=== PATIENT | male | born 1950 | race Caucasian/White ===

== ENCOUNTER → 2021-04-11 00:05 | Outpatient (CLI) | payer MEDICARE, SELFPAY ==
[2021-04-11 18:03] LABS: SARS-CoV-2 RNA PCR Negative
== END ==
PROVIDERS: PCP Internal Medicine; Visit Provider Internal Medicine Gastroenterology
DX: Z01.812 Encounter for preprocedural laboratory examination (principal); Z20.822 Contact with and (suspected) exposure to COVID-19
CPT/HCPCS: C9803; U0003; U0005

== ENCOUNTER 2021-04-14 01:31 | Day surgery (SDC) | payer MEDICARE, SELFPAY ==
[2021-04-02 15:48] VITALS: BMI 30.8
[2021-04-14] MEDS: LACTATED RINGERS 1,000 ML 150 ML IV CONT (06:49)
[2021-04-14 06:51] LABS: Glucose Point of Care 136 mg/dl (65-105)
[2021-04-14 06:57] VITALS: BP 184/88; PULSE 114; RESP 20; TEMP 36.9; O2SAT 97
--- NOTE | 2021-04-14 07:39 | WPDANESEPPF ---
Anes - Initial Pre Proc Eval Procedure: Operation Date: 04/14/21 08:00 Proposed Procedures p Screening Colonoscopy - Rogelio Staples MD Date/Time: 04/14/21 07:39 Surgeon: Rogelio Staples MD Pre Op Diagnosis: neoplasm screening Patient Data Age: 70 Gender: M Height: 1.83 m Weight: 101 kg Last Vital Signs Temp 98.5 F 04/14/21 06:57 Pulse 114 H 04/14/21 06:57 Resp 20 04/14/21 06:57 BP 184/88 H 04/14/21 06:57 Pulse Ox 97 04/14/21 06:57 Allergies Allergy/AdvReac Type Severity Reaction Status Date / Time No Known Allergies Allergy Unknown Uncoded 04/14/21 06:44 Home Medications Medication Instructions Recorded Confirmed Type blood sugar diagnostic #100 each 07/30/19 04/14/21 Rx docosahexaenoic acid (dha)-epa 120 3 cap PO BID cap 07/30/19 04/14/21 History mg-180 mg capsule lancets #100 each 07/30/19 04/14/21 Rx metformin 500 mg tablet 500 mg PO DAILY #90 tablet 07/04/20 04/14/21 Rx metoprolol succinate 100 mg 100 mg PO DAILY #90 tablet 08/14/20 04/14/21 Rx tablet,extended release 24 hr amlodipine 5 mg PO DAILY 04/02/21 04/14/21 History losartan 100 mg PO DAILY 04/02/21 04/14/21 History pantoprazole 20 mg PO DAILY 04/02/21 04/14/21 History pravastatin 80 mg PO DAILY 04/02/21 04/14/21 History tamsulosin 0.4 mg PO DAILY 04/02/21 04/14/21 History Laboratory Tests 04/14/21 06:48 POC Capillary Glucose 136 mg/dl H mg/dl (65-105) Patient hx anesthesia problems: none Family hx anesthesia problems: none Results Review: All pre-operative results and documents have been reviewed as part of the pre-operative evaluation. [facility] Past Medical History Medical History (Updated 02/18/21 @ 10:31 by Jeannette Garcia, EXCAVATING MACHINE OPERATOR-C) BPH (benign prostatic hyperplasia) Erectile dysfunction Gout Hyperlipidemia Hypertension Inguinal hernia Prediabetes Umbilical hernia Social History Social History Smoking status: Never smoker Alcohol intake: current Drinks per week: 1 Alcohol use details: 1 or 2 drinks a month Substance use type: does not use Living arrangements: with family Spiritual care concerns: No Anes - Eval Final PreProcedure Day of Procedure 04/14/21 07:39 Patient weight: obese Heart: regular rate and rhythm Lungs: clear to auscultation Airway: Mallampati scale class II Neurological: alert and oriented Last oral intake: >/= 8 hours ASA classification: III Emergent: no Anesthetic plan: proceed Anesthesia type and monitoring: general GIVS and standard monitoring Results Review: All pre-operative results and documents have been reviewed as part of the pre-operative evaluation. Informed Consent: The patient's anesthetic plan and its attendant risks and benefits were discussed with the patient/family/POA. Questions were solicited and answers provided to the satisfaction of the patient/family/POA.
--- NOTE | 2021-04-14 08:01 | PM.HPGS ---
History of Present Illness History of Present Illness Consent: Risks, benefits, and alternatives have been discussed and questions answered. Patient agrees to proceed with procedure. Chief complaint: neoplasm screening Narrative: Gil Martinez is a 70 year old male with last colonoscopy 12 years ago. Review of Systems Constitutional: Constitutional: Denies headache(s) and Denies weakness Eyes: Eyes: Denies blurry vision ENT: Reports Normal hearing present, Denies headache(s) and Denies neck pain Cardiovascular: Cardiovascular: Denies chest pain and Denies dyspnea Respiratory: Respiratory: Denies dyspnea Gastrointestinal: Gastrointestinal: Reports no additional gastrointestinal complaints Genitourinary: Genitourinary: Denies dysuria Musculoskeletal: Musculoskeletal: Denies neck pain Integumentary/Breasts: Skin/Breast: Denies dry skin Neurologic: Reports Normal hearing present, Denies headache(s) and Denies weakness Psychiatric: Psychiatric: Denies anxiety Endocrine: Endocrine: Denies change in body appearance Hematologic/Lymphatic: Hematologic/Lymphatic: Denies easy bleeding Allergic/Immunologic: Allergic/Immunologic: Denies urticaria PMFSH Past Medical History Medical History (Updated 02/18/21 @ 10:31 by MAMTA Greene) BPH (benign prostatic hyperplasia) Erectile dysfunction Gout Hyperlipidemia Hypertension Inguinal hernia Prediabetes Umbilical hernia Social History Social History Smoking status: Never smoker Alcohol intake: current Drinks per week: 1 Alcohol use details: 1 or 2 drinks a month Substance use type: does not use Living arrangements: with family Spiritual care concerns: No Meds Home Medications and Allergies Home Medications Medication Instructions Recorded Confirmed Type blood sugar diagnostic #100 each 07/30/19 04/14/21 Rx docosahexaenoic acid (dha)-epa 120 3 cap PO BID cap 07/30/19 04/14/21 History mg-180 mg capsule lancets #100 each 07/30/19 04/14/21 Rx metformin 500 mg tablet 500 mg PO DAILY #90 tablet 07/04/20 04/14/21 Rx metoprolol succinate 100 mg 100 mg PO DAILY #90 tablet 08/14/20 04/14/21 Rx tablet,extended release 24 hr amlodipine 5 mg PO DAILY 04/02/21 04/14/21 History losartan 100 mg PO DAILY 04/02/21 04/14/21 History pantoprazole 20 mg PO DAILY 04/02/21 04/14/21 History pravastatin 80 mg PO DAILY 04/02/21 04/14/21 History tamsulosin 0.4 mg PO DAILY 04/02/21 04/14/21 History Allergies Allergy/AdvReac Type Severity Reaction Status Date / Time No Known Allergies Allergy Unknown Uncoded 04/14/21 06:44 Vital Signs Vital Signs - 24 hr 04/14/21 06:57 Temperature 98.5 F Pulse Rate 114 H Respiratory Rate 20 Blood Pressure 184/88 H Pulse Oximetry 97 Exam Const: General: comfortable and no acute distress HENMT: General nose exam: Normal nares present Eyes: General: appearance normal, both eyes and all related structures Neck: Neck: no JVD Resp: Auscultation: clear to auscultation bilaterally Cardio: Rate: regular rate Rhythm: regular rhythm GI: Inspection: non-distended GI Palp: Yes Soft to palpation Skin: General skin exam: normal color Neuro: General: gait normal Speech: normal speech Extrem: General: normal to inspection Psych: Mental Status: mental status grossly normal Assessment and Plan Assessment and plan (1) Screening for colon cancer: Code(s): Z12.11 - Encounter for screening for malignant neoplasm of colon Status: Acute Assessment and Plan: colonoscopy
[2021-04-14 08:29] VITALS: BP 104/69; PULSE 75; RESP 21; O2SAT 98
[2021-04-14 08:39] VITALS: BP 111/75; RESP 20; O2SAT 99
[2021-04-14 08:49] VITALS: BP 146/89; RESP 18; O2SAT 99
== END 2021-04-14 09:05 | disposition home or self-care (01) ==
PROVIDERS: PCP Internal Medicine; Visit Provider Internal Medicine Gastroenterology
PROC: 0DJD8ZZ Inspection of Lower Intestinal Tract, Via Natural or Artificial Opening Endoscopic (ICD-10-PCS; CPT 45378; principal; 2021-04-14 08:00)
DX: Z12.11 Encounter for screening for malignant neoplasm of colon (principal); D12.3 Benign neoplasm of transverse colon; D12.4 Benign neoplasm of descending colon; K63.5 Polyp of colon; K57.30 Diverticulosis of large intestine without perforation or abscess without bleeding; K64.8 Other hemorrhoids; I10 Essential (primary) hypertension; E78.5 Hyperlipidemia, unspecified; R73.03 Prediabetes; M10.9 Gout, unspecified; N40.0 Benign prostatic hyperplasia without lower urinary tract symptoms; Z79.84 Long term (current) use of oral hypoglycemic drugs; E66.9 Obesity, unspecified; Z68.30 Body mass index [BMI] 30.0-30.9, adult
CPT/HCPCS: 45385; 82948; 88305; J2704; J7120

== ENCOUNTER 2023-03-03 08:23 | Inpatient (IN) | payer MEDICARE, SELFPAY ==
[2023-03-03] VITALS (26 sets, daily range): BP systolic 135–187; BP diastolic 94–113; PULSE 74–164; RESP 17–22; TEMP 36–36.8; O2SAT 22–98
--- NOTE | 2023-03-03 | ECHO_ITS ---
Patient Info Name: Gil Martinez Age: 72 years : 1950 Gender: Male Ht: 74 in Wt: 230 lbs BSA: 2.35 m2 HR: 86 bpm Heart Rhythm: Atrial Fibrillation Technical Quality: Good Exam Date: 03/03/2023 3:54 PM Exam Location: [facility] Patient Status: Outpatient Admit Date: 03/03/2023 Staff Ordering Physician: Donna Brown Allopathic Doctor: Nain Perla RDCS Attending Provider: Shanon Hargrove MD Referring Physician: Stephanie MENDOZA; Exam Type: CA echo doppler color flow Study Info Indications - A-fib Complete two-dimensional, color flow and Doppler transthoracic echocardiogram is performed. Summary 1. Complete two-dimensional, color flow and Doppler transthoracic echocardiogram is performed. 2. Left ventricular hypertrophy with normal systolic function. 3. Dilated left atrium. 4. Trivial MR. 5. Atrial fibrillation. Left Ventricle Left ventricular chamber dimension is normal. Left ventricular systolic function is normal, estimated at 55-60%. There is mild concentric increased left ventricular wall thickness. The left ventricular diastolic function is indeterminate. Right Ventricle Right ventricular chamber dimension is normal. Left Atria Left atrial chamber dimension is moderately enlarged. Right Atria Right atrial chamber dimension is normal. Aortic Valve The aortic valve is normal. Pulmonic Valve The pulmonic valve is normal. Mitral Valve The mitral valve has normal leaflets. Tricuspid Valve The tricuspid valve leaflets are normal. Pericardium/Pleural The pericardium appears normal. Aorta The aortic root size at the sinus of Valsalva is normal. Left Ventricular Outflow Tract Name Value Normal LVOT 2D LVOT Diameter 2.1 cm LVOT Doppler LVOT Peak Gradient 3 mmHg LVOT Mean Gradient 2 mmHg LVOT VTI 16 cm LVOT VTI/AV VTI Ratio 1.2 LVOT Stroke Volume 57 ml LVOT CO 1.9 l/min LVOT CI 0.8 l/min/m2 Pulmonic Valve Name Value Normal RVOT Doppler RVOT Peak Gradient 1 mmHg PV Doppler PV Peak Gradient 2 mmHg Mitral Valve Name Value Normal MV Doppler MV Decel [place] 451 cm/s2 MV PHT 64 ms MV Area (PHT) 3.4 cm2 4.0-5.0 MV Diastolic Function MV E Peak Velocity 100 cm/s
--- NOTE | ~2023-03-03 | XR_ITS ---
EXAMINATION: XR chest 1V portable DATE: 03/03/2023 09:04 INDICATION: Heart palpitations. Atrial fibrillation. TECHNIQUE: frontal view of the chest was obtained. COMPARISON: None FINDINGS: Mild elevation of the left hemidiaphragm with triangular opacities at the left lung base most consist ent with discoid atelectasis. Additional streaky atelectasis at the right lung base. Small likely oskar cified nodule at the left costophrenic angle consistent with old granulomatous disease. There is a la rger 11 mm nodule projecting over the lateral right lower lung zone likely but not definitively calci fied. No pulmonary edema, pleural effusion or pneumothorax. The cardiomediastinal silhouette is withi n normal limits for AP technique. IMPRESSION: 1. Bibasilar opacities and favor atelectasis over pneumonia. 2. Nodular opacity lateral right lower lung zone, likely but not definitively calcified and would rec ommend low-dose noncontrast chest CT for further evaluation. Reviewed, dictated and finalized at location A. IMPRESSION: 1. Bibasilar opacities and favor atelectasis over pneumonia. 2. Nodular opacity lateral right lower lung zone, likely but not definitively c alcified and would recommend low-dose noncontrast chest CT for further evaluati on.
--- NOTE | ~2023-03-03 | CT_ITS ---
EXAMINATION:CT diagnostic chest wo con DATE: 03/03/2023 09:58 INDICATION: Abnormal chest radiograph. Dysphagia. Palpitations. TECHNIQUE: Computed tomography (CT) of the chest was performed without intravenous contrast. Automate d exposure control and iterative reconstruction technique were employed. The dose-length product (DLP ) was 377.66 mGy-cm. COMPARISON: Chest single view 03/03/2023 FINDINGS: There is mild elevation of left hemidiaphragm. There are mild lungs demonstrate mild atelec tasis. A calcified left lung nodule and calcified left hilar and mediastinal lymph nodes are consiste nt with old granulomatous disease. No pleural effusion. Cardiomegaly is noted. There are coronary art ulises calcifications. No pericardial effusion. Calcifications in the spleen are consistent with old gra nulomatous disease. There is a 7.6 cm mass in right hepatic lobe. There is mild cervical and thoracic spondylosis. IMPRESSION: 1. 7.6 cm liver mass, which may be benign or malignant. Abdomen MRI without and with contrast is sujit mmended. Reviewed, dictated and finalized at location A. IMPRESSION: 1. 7.6 cm liver mass, which may be benign or malignant. Abdomen MRI without and with contrast is recommended.
--- NOTE | ~2023-03-03 | MR_ITS ---
EXAMINATION: MR abdomen wo/w con DATE: 03/04/2023 13:22 INDICATION: Liver mass. TECHNIQUE: Magnetic resonance imaging (MRI) of the abdomen was performed without and with 20 mL Multi Kimberly intravenous contrast. COMPARISON: Chest CT 03/03/2023 FINDINGS: There is a small right pleural effusion. In the right hepatic lobe, there is an 8.2 x 5.8 cm mass wit h interrupted peripheral puddling of contrast, consistent with a hemangioma. In the left hepatic lobe , there is a 1.7 cm hyperenhancing mass without washout. There are cysts in the spleen measuring up t o 7 mm. The pancreas and adrenal glands are normal. There is cortical thinning of the kidneys. There are cysts and hemorrhagic cysts in the kidneys measuring up to 13 mm in the right. There are no dilat ed loops of bowel. There is no ascites. There are no pathologically enlarged lymph nodes. IMPRESSION: 1. 8.2 cm hemangioma in the liver. 2. 1.7 cm hyperenhancing liver mass. In the absence of known malignancy or chronic liver disease, thi s finding is likely a hemangioma or focal nodular hyperplasia. 3. Small right pleural effusion. Reviewed, dictated and finalized at location A. IMPRESSION: 1. 8.2 cm hemangioma in the liver. 2. 1.7 cm hyperenhancing liver mass. 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 3. Small right pleural effusion.
--- NOTE | 2023-03-03 08:29 | ECG_ITS ---
Measurements Intervals [place] Rate: 155 P: MI: 0 QRS: 25 QRSD: 110 T: -5 QT: 284 QTc: 457 Interpretive Statements ATRIAL FLUTTER WITH RAPID VENTRICULAR RESPONSE MODERATE ST DEPRESSION [0.05+ mV ST DEPRESSION] ABNORMAL ECG COMPARED TO ECG 05/08/2019 14:14:51 ATRIAL FLUTTER REPLACES SINUS RHYTHM Electronically Signed On 03-03-2023 13:18:14 CDT by Bradly Kee M.D.
[2023-03-03 08:57] LABS: Basophils Percent Auto 0.3 % (0.2-1.2); Eosinophils Absolute Auto 0.1 K/mm3 (0-0.3); Eosinophils Percent Auto 0.9 % (0-4.4); Hemoglobin 16.9 g/dL (14.0-18.0); Immature Granulocyte Absolute 0.02 K/mm3 (0.00-0.031); Immature Granulocyte Percent A 0.3 % (0-0.5); Lymphocytes Absolute Auto 1.98 K/mm3 (0.9-3.2); Lymphocytes Percent Auto 31.3 % (18.3-44.2); Mean Corpuscular HGB Conc 33.1 g/dl (32-36); Mean Corpuscular Hemoglobin 30.5 pg (26-34); Mean Corpuscular Volume 92.1 fl (80-100); Mean Platelet Volume 10.3 fl (7.4-10.4); Monocytes Absolute Auto 0.4 K/mm3 (0.1-0.6); Monocytes Percent Auto 6.8 % (2.6-8.5); Neutrophils Absolute Auto 3.8 K/mm3 (1.3-6.7); Neutrophils Percent Auto 60.4 % (45.5-73.1); Platelet Count Result 143 k/mm3 (150-375); Red Blood Count 5.54 M/mm3 (4.6-6.20); Red Cell Distribution Width 13.9 % (11.5-14.5); White Blood Count 6.3 K/mm3 (4.5-10.0)
[2023-03-03 09:06] LABS: Alanine Aminotransferase 28 U/L (6-50); Albumin Level 4.3 g/dL (3.5-5.1); Alkaline Phosphatase 92 U/L (38-126); Anion Gap 4 mmol/L (8-16); Aspartate Amino Transferase 27 U/L (17-59); Bilirubin,Total 1.1 mg/dL (0.2-1.3); Blood Urea Nitrogen 22 mg/dL (9-20); Calcium 9.2 mg/dL (8.4-10.2); Carbon Dioxide 27 mmol/L (22-30); Chloride 104 mmol/L (98-107); Estimated CRCL calculation 56 ml/min; Estimated Glomerular Filt Rate 54; Glucose 135 mg/dL (65-110); Lipase 37 U/L (23-300); Potassium 3.6 mmol/L (3.4-5.0); Sodium 135 mmol/L (137-145)
[2023-03-03 09:18] LABS: Troponin I < 0.012 ng/mL (0.000-0.034)
[2023-03-03 09:24] LABS: Partial Thromboplastin Time 29.9 SECONDS (22.3-36.8)
[2023-03-03] MEDS: dilTIAZem HCl INJ 25 MG/5 ML VIAL 20 MG IV PUSH (09:24)
[2023-03-03] MEDS: dilTIAZem 100 MG/100 ML 100 MG/100 ML BAG 10 MG IV CONT (09:24)
[2023-03-03 09:28] LABS: Prothrombin Time 13.5 Seconds (11.1-14.7)
--- NOTE | 2023-03-03 10:45 | ED.ARRPALP ---
HPI - Arrhythmia/Palpitations General Chief Complaint: Arrhythmia/Palpitations Stated Complaint: A FIB Time Seen by Provider: 03/03/23 08:32 Source: patient and RN notes reviewed Mode of arrival: ambulatory Limitations: no limitations History of Present Illness HPI narrative: This is a 72 year old male with history of hypertension who presents for evaluation of palpitations. He states he has been having heart palpitations and describes as heart beating irregular for 1-2 weeks. He states he has had palpitations for years but it usually resolved. IT has been consistent for past 1. He denies chest pain, nausea, vomiting, diarrhea, leg pain, leg swelling. He denies history PE/DVT. He was seen by PCP who referred to ER because he was found to be in afib with RVR which is new diagnosis. Related Data Home Medications Medication Instructions Recorded Confirmed ascorbate calcium (vitamin C) 500 500 mg PO DAILY 03/10/22 03/03/23 mg tablet krill oil 500 mg capsule 500 mg PO DAILY 03/10/22 03/03/23 magnesium oxide 400 mg PO DAILY 03/10/22 03/03/23 Allergies Allergy/AdvReac Type Severity Reaction Status Date / Time No Known Allergies Allergy Unknown Uncoded 03/03/23 08:36 Review of Systems Constitutional: Constitutional: Denies weakness Cardiovascular: Cardiovascular: Denies syncope, Reports rapid heart rate, Reports irregular heart rhythm, Denies leg edema and Denies dyspnea Respiratory: Respiratory: Denies chest congestion, Denies hemoptysis, Denies excessive phlegm production and Denies dyspnea Gastrointestinal: Gastrointestinal: Denies abdominal pain, Denies hematochezia, Denies diarrhea and Denies vomiting Genitourinary: Genitourinary: Denies hematuria, Denies dysuria, Denies penile discharge and Denies testicular pain Musculoskeletal: Musculoskeletal: Denies joint swelling, Denies loss of height and Denies muscle weakness Neurologic: Denies syncope, Denies focal weakness and Denies weakness PMFSH Past Medical History Medical History BPH (benign prostatic hyperplasia) Erectile dysfunction Gout Hyperlipidemia Hypertension Inguinal hernia Prediabetes Umbilical hernia Family History Family History Father Heart disease Mother Heart disease Social History Social History Smoking status: Never smoker Second hand tobacco smoke exposure: No Alcohol intake: current Drinks per week: 1 Alcohol use details: 1 or 2 drinks a month Substance use: never Substance use type: does not use Lack of Transportation: No Lack of Food: Never True Current Housing: I Have Housing Concerned About Future Housing: No Difficulty Paying Gas/Electric Bills: No Difficulty Paying for Meds: No Currently Unemployed: No Education: Trade/Vocational Certificate Difficulty w/ Childcare or Family Care: No Living arrangements: with family Spiritual care concerns: No Exam Const: General: no acute distress and alert Nutritional Appearance: well nourished Orientation/consciousness: patient oriented x3 HENMT: Head: normal to inspection Eyes: EOM: EOMs intact bilaterally Chest: Chest palpation & inspection: normal inspection of the chest Resp: Effort & Inspection: normal respiratory effort Auscultation: clear to auscultation bilaterally Cardio: Rate: tachycardic Rhythm: abnormal rhythm Heart sounds: no murmurs GI: GI Palp: Yes Soft to palpation, No Tenderness to palpation present (GI), No Guarding due to palpation present (GI) and No Rigid due to palpation Auscultation: normal bowel sounds Skin: General skin exam: normal color Rashes: no rashes Neuro: General: patient oriented x3, moves all extremities and CN's II-XI intact bilaterally Extrem: General: normal to inspection and no pedal edema Psych: Mental Status: mental statu
--- NOTE | 2023-03-03 11:06 | PC.NURSE ---
Received approval from pt to speak to Yuliana.
[2023-03-03] MEDS: ENOXAPARIN 100 MG/ML SYRINGE SUB-Q ×2 (11:09→20:05)
--- NOTE | 2023-03-03 11:17 | PC.NURSE ---
Spoke with Yuliana and gave update regarding pt.
[2023-03-03] MEDS: dilTIAZem HCl INJ 25 MG/5 ML VIAL IV PUSH (11:21)
--- NOTE | 2023-03-03 11:48 | PC.NURSE ---
Spoke with Yuliana on the phone regarding pt update
[2023-03-03 11:57] LABS: Troponin I < 0.012 ng/mL (0.000-0.034)
--- NOTE | 2023-03-03 12:19 | PM.CNCAR ---
Assessment and Plan Assessment and plan (1) Atrial fibrillation with RVR: Code(s): I48.91 - Unspecified atrial fibrillation Status: Acute Assessment and Plan: New diagnosis of atrial fibrillation. By his history, he has probably been in atrial fibrillation for about a week or so. In the emergency department, he was given a couple of diltiazem boluses and placed on a diltiazem drip at a rate of 20mg/hr. Despite high dose of diltiazem his heart rate remained elevated, so I ordered one dose of p.o. metoprolol which brought his heart rate down to the 70's. Continue rate control with metoprolol 25mg q8h [id number] score 2(age, HTN). No hx of bleeding problems. A/c is indicated. Will start Xarelto 20mg daily beginning tomorrow as he has already rec'd full dose of lovenox today. IV metoprolol p.r.n. Will check an echo He has a diagnosis of JESSICA and is not compliant with CPAP. Encouraged compliance. Likely d/c tomorrow if HR remains controlled. History of Present Illness History of Present Illness Consult date/time: 03/03/23 12:19 Requesting physician: Priscila Arrington MD Consult reason: atrial fibrillation Reason For Visit: new onset afib with rvr Narrative: Gil Martinez is a 72 year old with a history of hypertension and hyperlipidemia. This is a patient who comes to the hospital with a chief complaint of palpitations. He has experienced palpitations in the past, but they are usually self-limiting and occur infrequently. Over the past week or so he has been experiencing these palpitations more frequently, therefore he came to the emergency department for evaluation. He was found to be in atrial fibrillation with rapid ventricular response. Aside from feeling palpitations he is asymptomatic. He denies any cardiac history including coronary artery disease, CHF, or any other arrhythmias. At the time of my evaluation he is lying comfortably in bed and has no complaints. His heart rate has come down after being given metoprolol. Review of Systems Review of Systems: All systems reviewed & are unremarkable except as noted in HPI and below PMFSH Past Medical History Medical History BPH (benign prostatic hyperplasia) Erectile dysfunction Gout Hyperlipidemia Hypertension Inguinal hernia Prediabetes Umbilical hernia Family History Family History Father Heart disease Mother Heart disease Social History Social History Smoking status: Never smoker Second hand tobacco smoke exposure: No Alcohol intake: current Drinks per week: 1 Alcohol use details: 1 or 2 drinks a month Substance use: never Substance use type: does not use Lack of Transportation: No Lack of Food: Never True Current Housing: I Have Housing Concerned About Future Housing: No Difficulty Paying Gas/Electric Bills: No Difficulty Paying for Meds: No Currently Unemployed: No Education: Trade/Vocational Certificate Difficulty w/ Childcare or Family Care: No Living arrangements: with family Spiritual care concerns: No Meds Home Medications and Allergies Home Medications Medication Instructions Recorded Confirmed Type blood sugar diagnostic (Contour #100 ea 07/30/19 03/03/23 Rx Test Strips) lancets (Lancets, Super Thin) #100 ea 07/30/19 03/03/23 Rx ascorbate calcium (vitamin C) 500 500 mg PO DAILY 03/10/22 03/03/23 History mg tablet krill oil 500 mg capsule 500 mg PO DAILY 03/10/22 03/03/23 History magnesium oxide 400 mg PO DAILY 03/10/22 03/03/23 History irbesartan 300 mg tablet 300 mg PO DAILY #90 tabs 08/03/22 03/03/23 Rx pantoprazole 20 mg tablet,delayed 20 mg PO DAILY #90 tabs 10/05/22 03/03/23 Rx release pravastatin 80 mg tablet 80 mg PO DAILY #90 tabs 10/05/22 03/03/23 Rx amlodipine 5 mg tablet 5 mg PO DAILY
[2023-03-03 12:21] LABS: Free T4 Free Thyroxine Reflex 1.31 ng/dL (0.78-2.19)
[2023-03-03] MEDS: METOPROLOL TARTRATE 25 MG TABLET PO ×2 (12:32→21:53)
--- NOTE | 2023-03-03 12:35 | ADMGEN ---
This patient, Gil Martinez, was admitted to IMU Room 210-01 at 1151. Patient/family oriented to hospital policies and general routines including ID bracelet, bed and alarms, visiting hours, pain management, procedures, bathroom and other care routines, personal items, smoking policy, room service/diet, and visiting hours. Information on how to activate the Rapid Response Team has been discussed. Patient/Family are encouraged to report perceived risks to care and to ask questions if they do not understand what they are told or what they should do.
[2023-03-03 13:24] LABS: Total Triiodothyronine (T3) 1.23 NG/ML (0.97-1.69)
[2023-03-03 15:55] LABS: Troponin I < 0.012 ng/mL (0.000-0.034)
--- NOTE | 2023-03-03 19:16 | PM.IMHP ---
H&P: HPI History of Present Illness Date/Time: 03/03/23 19:00 Chief Complaint: Palpitations. Narrative: This is a very pleasant 72-year-old male with hypertension, hyperlipidemia, prediabetes, benign prostatic hyperplasia, and gastroesophageal reflux disease who presented to the emergency department via private vehicle for evaluation of palpitations. Patient provides the following history. He endorses intermittent sensations of racing heart and palpitations for years however they have always been self-limiting and have not last for very long. The last 2 weeks or so however he has had consistent palpitations and sensations of racing heart associated with occasional lightheadedness. Due to ongoing symptoms he came to the ER where he was found to be in atrial fibrillation with rapid ventricular response. Blood pressures have been stable. Troponin was normal. TSH was a bit low at 0.3 to 0 with normal T3 and T4. He was started on a diltiazem drip and that has since been discontinued per Cardiology. He has since been started on metoprolol tartrate 25 mg q.8 hours and rivaroxaban for stroke prophylaxis. At the time my evaluation he remains in atrial fibrillation but rates are in the low 100s and he feels a lot better. He drinks 1 cup of coffee a day and denies significant alcohol use. He has not had any new medications recently. No known history of thyroid disease. He had a sleep study done several years ago which reportedly was unremarkable however he does endorse concerns for possible sleep apnea. He has not had exertional chest pain, shortness a breath, nausea, vomiting, or sweats. Of note a nodular opacity in the lateral right lower lung zone a subsequent chest CT showed a 7.6 cm liver mass which may be benign or malignant. With further questioning he denies abdominal pain, weight loss, or history of malignancy. Review of Systems Review of Systems: Twelve systems were reviewed and are negative except for as per HPI. [facility] Past Medical History Medical History (Updated 03/03/23 @ 20:15 by Bebe Hernadez PA-C) Benign prostatic hyperplasia Erectile dysfunction Gout Hyperlipidemia Hypertension Prediabetes Surgical History Surgical History (Updated 03/03/23 @ 20:10 by Bebe Hernadez PA-C) History of inguinal hernia repair History of tonsillectomy History of umbilical hernia repair Status post excision of acoustic neuroma Family History Family History Father Heart disease Mother Heart disease Social History Social History (Updated 03/03/23 @ 20:11 by Bebe Hernadez PA-C) Social History: Surrogate medical decision maker: Yuliana Martinez, spouse. Code status: Full code. Smoking status: Never smoker Second hand tobacco smoke exposure: No Alcohol intake: current Drinks per week: 1 Alcohol use details: 1 or 2 drinks a month Substance use: never Substance use type: does not use Lack of Transportation: No Lack of Food: Never True Current Housing: I Have Housing Concerned About Future Housing: No Difficulty Paying Gas/Electric Bills: No Difficulty Paying for Meds: No Currently Unemployed: No Education: Trade/Vocational Certificate Difficulty w/ Childcare or Family Care: No Living arrangements: with family Spiritual care concerns: No Meds Home Medications and Allergies Home Medications Medication Instructions Recorded Confirmed Type blood sugar diagnostic (Contour #100 ea 07/30/19 03/03/23 Rx Test Strips) lancets (Lancets, Super Thin) #100 ea 07/30/19 03/03/23 Rx ascorbate calcium (vitamin C) 500 500 mg PO DAILY 03/10/22 03/03/23 History mg tablet krill oil 500 mg capsule 500 mg PO DAILY 03/10/22 03/03/23 History magnesium oxide 400 mg PO DAILY 03/10/22 03/03/23 History irbesartan 300 mg tablet 300 mg PO DAILY #90 tabs 08/03/22 03/03/23 Rx pantoprazole 20 mg tablet,delayed 20 mg PO DAILY #90 tabs 10/05/22 0
[2023-03-03 19:53] LABS: Glucose Point of Care 120 mg/dl (65-105)
[2023-03-03] MEDS: METOPROLOL TARTRATE INJ 5 MG/5 ML VIAL IV PUSH (20:05)
[2023-03-03] MEDS: ALPRAZolam (*CRX) 0.25 MG TABLET PO (20:55)
[2023-03-04] VITALS (19 sets, daily range): BP systolic 119–167; BP diastolic 78–121; PULSE 71–154; RESP 18–20; TEMP 35.7–36.6; O2SAT 97–100
[2023-03-04] MEDS: METOPROLOL TARTRATE INJ 5 MG/5 ML VIAL IV PUSH ×2 (03:25→06:47)
[2023-03-04 05:57] LABS: Hematocrit 48.2 % (42.0-52.0); Hemoglobin 16.1 g/dL (14.0-18.0); Mean Corpuscular HGB Conc 33.4 g/dl (32-36); Mean Corpuscular Hemoglobin 30.5 pg (26-34); Mean Corpuscular Volume 91.3 fl (80-100); Mean Platelet Volume 10.5 fl (7.4-10.4); Platelet Count Result 148 k/mm3 (150-375); Red Blood Count 5.28 M/mm3 (4.6-6.20); Red Cell Distribution Width 13.5 % (11.5-14.5); White Blood Count 7.6 K/mm3 (4.5-10.0)
[2023-03-04] MEDS: METOPROLOL TARTRATE 25 MG TABLET PO (06:00)
[2023-03-04 06:10] LABS: Alanine Aminotransferase 26 U/L (6-50); Albumin Level 3.7 g/dL (3.5-5.1); Alkaline Phosphatase 75 U/L (38-126); Anion Gap 3 mmol/L (8-16); Aspartate Amino Transferase 22 U/L (17-59); Blood Urea Nitrogen 15 mg/dL (9-20); Calcium 8.9 mg/dL (8.4-10.2); Carbon Dioxide 28 mmol/L (22-30); Chloride 104 mmol/L (98-107); Estimated CRCL calculation 65 ml/min; Estimated Glomerular Filt Rate > 60; Glucose 121 mg/dL (65-110); Magnesium 1.9 mg/dL (1.6-2.3); Potassium 3.8 mmol/L (3.4-5.0); Sodium 135 mmol/L (137-145)
[2023-03-04] MEDS: ASCORBIC ACID 500 MG TABLET PO (08:06)
[2023-03-04] MEDS: amLODIPine BESYLATE 5 MG TABLET PO (08:07)
[2023-03-04] MEDS: PANTOPRAZOLE SOD SESQUIHYDRATE 20 MG TAB PO (08:07)
[2023-03-04] MEDS: MAGNESIUM OXIDE 400 MG TABLET PO (08:07)
[2023-03-04] MEDS: TAMSULOSIN HCL 0.4 MG CAPSULE PO (08:08)
[2023-03-04] MEDS: IRBESARTAN 150 MG TABLET 300 MG PO (08:13)
[2023-03-04] MEDS: ENOXAPARIN 100 MG/ML SYRINGE SUB-Q (08:13)
[2023-03-04 08:15] LABS: Glucose Point of Care 169 mg/dl (65-105)
[2023-03-04] MEDS: METOPROLOL TARTRATE 50 MG TAB PO ×3 (10:41→21:04)
--- NOTE | 2023-03-04 11:30 | PM.PNCARD ---
Progress Note: A&P Assessment and Plan (1) Atrial fibrillation with RVR: Code(s): I48.91 - Unspecified atrial fibrillation Status: Acute Assessment and Plan: New diagnosis of atrial fibrillation. By his history, he has probably been in atrial fibrillation for about a week or so. In the emergency department, he was given a couple of diltiazem boluses and placed on a diltiazem drip at a rate of 20mg/hr. Despite high dose of diltiazem his heart rate remained elevated, so I ordered one dose of p.o. metoprolol which brought his heart rate down to the 70's. Unfortunately overnight he had increased HR back into the 130's - 150's. Metoprolol has been increased. Metoprolol has been increased to 50mg q8h. May require further up titration and/or addition of another agent. Also discussed possible DCCV if medical management unsuccessful. [id number] score 2(age, HTN). No hx of bleeding problems. A/c is indicated. Will start Xarelto 20mg daily IV metoprolol p.r.n. Echo showed normal LVSF, dilated LA, trivial MR. He has a diagnosis of JESSICA and is not compliant with CPAP. Encouraged compliance. Subjective Date/time seen: 03/04/23 11:30 Interval history: Cardiology follow up for atrial fibrillation Unfortunately went back into RVR overnight, HR 130's - 150's. He is asymptomatic. No complaints of any kind this morning. Review of Systems Review of Systems: All systems reviewed & are unremarkable except as noted in HPI and below Exam Const: General: comfortable, no acute distress, alert and awake Orientation/consciousness: patient oriented x3 HENMT: Head: normal to inspection Eyes: General: appearance normal, both eyes and all related structures Pupils: Equal, round and reactive pupils present Neck: Neck: normal visual inspection, supple and no JVD Carotids: normal carotid upstroke Resp: Effort & Inspection: normal respiratory effort Auscultation: clear to auscultation bilaterally Cardio: Rate: regular rate Rhythm: abnormal rhythm irregularly irregular Heart sounds: S1 normal heart sound present, S2 normal heart sound present and no murmurs GI: Auscultation: normal bowel sounds Skin: General skin exam: normal color Neuro: General: patient oriented x3 Cranial nerves: Yes Equal, round and reactive pupils present Extrem: General: normal to inspection Psych: Appearance: grossly normal Mental Status: mental status grossly normal Objective Data Vital Signs Vital Signs: Vital Signs - 24 hr 03/03/23 11:32 03/03/23 11:55 03/03/23 12:32 Temperature 36.0 C L Pulse Rate 93 91 102 H Respiratory Rate 20 18 Blood Pressure 162/102 H 150/104 H Pulse Oximetry 98 96 Oxygen Delivery 03/03/23 13:04 03/03/23 12:00 03/03/23 14:00 Temperature Pulse Rate 88 113 H 86 Respiratory Rate Blood Pressure Pulse Oximetry Oxygen Delivery 03/03/23 12:00 03/03/23 13:26 03/03/23 16:00 Temperature Pulse Rate 74 Respiratory Rate Blood Pressure Pulse Oximetry Oxygen Delivery Room Air Room Air 03/03/23 16:00 03/03/23 18:00 03/03/23 16:00 Temperature 36.2 C L Pulse Rate 116 H 98 79 Respiratory Rate 18 Blood Pressure 152/98 H Pulse Oximetry 96 Oxygen Delivery 03/03/23 19:56 03/03/23 20:05 03/03/23 20:00 Temperature 36.2 C L Pulse Rate 130 H 150 H Respiratory Rate 18 Blood Pressure 158/107 H Pulse Oximetry 97 Oxygen Delivery Room Air 03/03/23 21:46 03/03/23 21:53 03/03/23 20:00 Temperature Pulse Rate 107 H 117 H Respiratory Rate Blood Pressure 156/94 H Pulse Oximetry Oxygen Delivery 03/03/23 22:00 03/04/23 00:00 03/04/23 00:00 Temperature 36.4 C Pulse Rate 111 H 106 H Respiratory Rate 18 Blood Pressure 166/86 H Pulse Oximetry 97 Oxygen Delivery Room Air 03/04/23 04:00 03/04/23 03:25 03/04/23 00:00 Temperature Pulse Rate 154 H 135 H Respiratory Rate Blood Pressure
--- NOTE | 2023-03-04 12:15 | PM.IMPN ---
Progress Note: A&P Assessment and Plan (1) Atrial fibrillation with rapid ventricular response: Code(s): I48.91 - Unspecified atrial fibrillation Status: Acute Assessment and Plan: Appreciate cardiology input. Still in AFib with RVR. Started on metoprolol 25 mg p.o. q.8 hours by Cardiology. Will increase to 50 mg p.o. q.8 hours Started on Xarelto TSH is a bit low with normal T3 and T4 Echo ordered (2) Liver mass: Code(s): R16.0 - Hepatomegaly, not elsewhere classified Status: Acute Assessment and Plan: On CT scan. MRI recommended. We will get MRI (3) Thrombocytopenia: Code(s): D69.6 - Thrombocytopenia, unspecified Status: Acute Assessment and Plan: Mild. Monitor (4) Hypertension: Code(s): I10 - Essential (primary) hypertension Status: Acute Assessment and Plan: Blood pressure elevated. Increase metoprolol to 50 mg p.o. q.8 hours (5) Prediabetes: Code(s): R73.03 - Prediabetes Status: Acute (6) Benign prostatic hyperplasia: Code(s): N40.0 - Benign prostatic hyperplasia without lower urinary tract symptoms Status: Acute Subjective Date/time seen: 03/04/23 12:15 Interval history: No complaint at this time Review of Systems Review of Systems: All systems reviewed & are unremarkable except as noted in HPI and below Exam Narrative: General: Well-developed, nontoxic-appearing gentleman. HEENT: Wearing corrective lenses. PERRL, EOMI. Sclera anicteric. Oral mucosa moist. Oropharynx clear. Neck: Supple. Respiratory: Lungs are clear to auscultation bilaterally. Cardiovascular: Irregularly irregular rate and rhythm. Monitor shows atrial fibrillation with rapid ventricular response and rates in the low 100s. Gastrointestinal: Abdomen is soft, nontender, and nondistended with positive bowel sounds. Liver feels a bit enlarged. No guarding or rebound tenderness. Skin: Warm and dry. Extremities: No cyanosis or clubbing. Trace pretibial edema bilaterally. Radial and pedal pulses intact. Neurological: Alert. Cranial nerves 2-12 are grossly intact. No gross focal deficits to casual conversation. Psychiatric: Pleasant and cooperative with normal mood and affect. Judgment and insight intact. Objective Data Vital Signs Vital Signs: Vital Signs - 24 hr 03/03/23 12:32 03/03/23 13:04 03/03/23 14:00 Temperature Pulse Rate 102 H 88 86 Respiratory Rate Blood Pressure Pulse Oximetry Oxygen Delivery 03/03/23 13:26 03/03/23 16:00 03/03/23 16:00 Temperature Pulse Rate 74 116 H Respiratory Rate Blood Pressure Pulse Oximetry Oxygen Delivery Room Air 03/03/23 18:00 03/03/23 16:00 03/03/23 19:56 Temperature 97.1 F L 97.2 F L Pulse Rate 98 79 130 H Respiratory Rate 18 18 Blood Pressure 152/98 H 158/107 H Pulse Oximetry 96 97 Oxygen Delivery 03/03/23 20:05 03/03/23 20:00 03/03/23 21:46 Temperature Pulse Rate 150 H Respiratory Rate Blood Pressure 156/94 H Pulse Oximetry Oxygen Delivery Room Air 03/03/23 21:53 03/03/23 20:00 03/03/23 22:00 Temperature Pulse Rate 107 H 117 H 111 H Respiratory Rate Blood Pressure Pulse Oximetry Oxygen Delivery 03/04/23 00:00 03/04/23 00:00 03/04/23 04:00 Temperature 97.6 F Pulse Rate 106 H Respiratory Rate 18 Blood Pressure 166/86 H Pulse Oximetry 97 Oxygen Delivery Room Air Room Air 03/04/23 03:25 03/04/23 00:00 03/04/23 02:00 Temperature Pulse Rate 154 H 135 H 125 H Respiratory Rate Blood Pressure Pulse Oximetry Oxygen Delivery 03/04/23 04:00 03/04/23 06:00 03/04/23 06:00 Temperature 97.8 F Pulse Rate 99 142 H 136 H Respiratory Rate 18 Blood Pressure 152/118 H Pulse Oximetry 97 Oxygen Delivery 03/04/23 06:47 03/04/23 08:23 03/04/23 08:26 Temperature 96.2 F L Pulse Rate 144 H 127 H 135 H Respiratory Rate 18 Blo
[2023-03-04] MEDS: LORazepam INJ (*CRX) 2 MG/ML VIAL 0.5 MG IV PUSH (12:30)
[2023-03-04] MEDS: polyethylene glycoL 3350 17 GM POWD.PACK PO (13:37)
[2023-03-04 16:27] LABS: Glucose Point of Care 94 mg/dl (65-105)
[2023-03-04] MEDS: RIVAROXABAN 20 MG TABLET PO (16:56)
[2023-03-04 20:42] LABS: Glucose Point of Care 148 mg/dl (65-105)
[2023-03-04] MEDS: PRAVASTATIN SODIUM 20 MG TABLET 80 MG PO (20:42)
[2023-03-05] VITALS (19 sets, daily range): BP systolic 152–166; BP diastolic 92–128; PULSE 67–143; RESP 18–20; TEMP 36.3–37; O2SAT 96–100
[2023-03-05] MEDS: METOPROLOL TARTRATE 50 MG TAB PO (05:24)
[2023-03-05 07:48] LABS: Glucose Point of Care 139 mg/dl (65-105)
[2023-03-05] MEDS: IRBESARTAN 150 MG TABLET 300 MG PO (08:29)
[2023-03-05] MEDS: ASCORBIC ACID 500 MG TABLET PO (08:29)
[2023-03-05] MEDS: MAGNESIUM OXIDE 400 MG TABLET PO (08:30)
[2023-03-05] MEDS: PANTOPRAZOLE SOD SESQUIHYDRATE 20 MG TAB PO (08:31)
[2023-03-05] MEDS: TAMSULOSIN HCL 0.4 MG CAPSULE PO (08:31)
[2023-03-05] MEDS: polyethylene glycoL 3350 17 GM POWD.PACK PO (08:35)
--- NOTE | 2023-03-05 09:57 | PM.PNCARD ---
Progress Note: A&P Assessment and Plan (1) Atrial fibrillation with rapid ventricular response: Code(s): I48.91 - Unspecified atrial fibrillation Status: Acute Plan 72-year-old man with: Recent onset of atrial fibrillation likely related to chronic hypertension and hypertensive heart disease with some degree of left atrial enlargement noted on echo. I am going to continue his metoprolol and add some diltiazem to the regimen to try to provide some improved heart rate control. Blood pressure still mildly elevated and so he should tolerate this without any problems. Systemic anticoagulation with Xarelto was in place. Hope to discharge in the next 24-48 hours once better heart rate control is achieved. The plan would be for attempting cardioversion in 4-6 weeks as an outpatient Bradly Kee MD [facility] Subjective Date/time seen: Date of service: 03/05/23 09:57 Interval history: Cardiology follow up for atrial fibrillation Unfortunately went back into RVR overnight, HR 130's - 150's. He is asymptomatic. No complaints of any kind this morning. Date of service 03/05/2023: Patient is essentially asymptomatic and feels relatively well. Atrial fib heart rate is somewhat better control still at times has heart rate up to 120-130. When he is resting in bed heart rate is in the low 100s. Exam Const: General: comfortable, no acute distress, alert and awake Orientation/consciousness: patient oriented x3 HENMT: Head: normal to inspection Eyes: General: appearance normal, both eyes and all related structures Pupils: Equal, round and reactive pupils present Neck: Neck: normal visual inspection, supple and no JVD Carotids: normal carotid upstroke Resp: Effort & Inspection: normal respiratory effort Auscultation: clear to auscultation bilaterally Cardio: Rate: regular rate Rhythm: abnormal rhythm irregularly irregular Heart sounds: S1 normal heart sound present, S2 normal heart sound present and no murmurs GI: Auscultation: normal bowel sounds Skin: General skin exam: normal color Neuro: General: patient oriented x3 Cranial nerves: Yes Equal, round and reactive pupils present Extrem: General: normal to inspection Psych: Appearance: grossly normal Mental Status: mental status grossly normal Objective Data Vital Signs Vital Signs: Vital Signs - 24 hr 03/04/23 10:41 03/04/23 12:00 03/04/23 13:37 Temperature 36.1 C L Pulse Rate 140 H 71 129 H Respiratory Rate 20 Blood Pressure 144/98 H Pulse Oximetry 100 Oxygen Delivery 03/04/23 10:00 03/04/23 12:00 03/04/23 14:00 Temperature Pulse Rate 131 H 102 H 99 Respiratory Rate Blood Pressure Pulse Oximetry Oxygen Delivery 03/04/23 16:34 03/04/23 16:00 03/04/23 18:00 Temperature 36.0 C L Pulse Rate 125 H 100 102 H Respiratory Rate 20 Blood Pressure 119/78 Pulse Oximetry 99 Oxygen Delivery 03/04/23 21:04 03/04/23 20:00 03/04/23 20:00 Temperature 36.2 C L Pulse Rate 109 H 94 Respiratory Rate 18 Blood Pressure 156/94 H Pulse Oximetry 100 Oxygen Delivery Room Air 03/04/23 20:00 03/04/23 22:00 03/05/23 00:00 Temperature 36.4 C Pulse Rate 90 78 113 H Respiratory Rate 18 Blood Pressure 162/100 H Pulse Oximetry 100 Oxygen Delivery 03/05/23 00:00 03/05/23 00:00 03/05/23 02:00 Temperature Pulse Rate 99 113 H Respiratory Rate Blood Pressure Pulse Oximetry Oxygen Delivery Room Air 03/05/23 04:00 03/05/23 04:00 03/05/23 05:24 Temperature Pulse Rate 122 H 127 H Respiratory Rate Blood Pressure Pulse Oximetry Oxygen Delivery Room Air 03/05/23 04:00 03/05/23 06:00 03/05/23 05:00 Temperature 36.7 C Pulse Rate 121 H 128 H 105 H Respiratory Rate 18 Blood Pressure 164/92 H Pulse Oximetry 96 Oxygen Delivery 03/05/23 08:21 Temperature 36.3 C L Pulse Rate 143 H Respiratory Rate 18 Blood Pressure 152/105 H
[2023-03-05] MEDS: dilTIAZem HCL CD 180 MG CAP.24HR PO (10:55)
[2023-03-05 12:29] LABS: Glucose Point of Care 196 mg/dl (65-105)
--- NOTE | 2023-03-05 12:33 | PM.IMPN ---
Progress Note: A&P Assessment and Plan (1) Atrial fibrillation with rapid ventricular response: Code(s): I48.91 - Unspecified atrial fibrillation Status: Acute Assessment and Plan: Appreciate cardiology input. Still in AFib with RVR. Increase metoprolol to 100 mg p.o. b.i.d. Cardizem added per Cardiology Started on Xarelto TSH is a bit low with normal T3 and T4 Echo shows left ventricular hypertrophy and left atrial enlargement (2) Liver mass: Code(s): R16.0 - Hepatomegaly, not elsewhere classified Status: Acute Assessment and Plan: On CT scan. MRI recommended. MRI shows liver hemangioma, likely benign (3) Hypertension: Code(s): I10 - Essential (primary) hypertension Status: Acute Assessment and Plan: Blood pressure elevated. Continue metoprolol at higher dose (4) Prediabetes: Code(s): R73.03 - Prediabetes Status: Acute (5) Benign prostatic hyperplasia: Code(s): N40.0 - Benign prostatic hyperplasia without lower urinary tract symptoms Status: Acute Subjective Date/time seen: 03/05/23 12:33 Interval history: Stable. No chest pain Review of Systems Review of Systems: All systems reviewed & are unremarkable except as noted in HPI and below Exam Narrative: General: Well-developed, nontoxic-appearing gentleman. HEENT: Wearing corrective lenses. PERRL, EOMI. Sclera anicteric. Oral mucosa moist. Oropharynx clear. Neck: Supple. Respiratory: Lungs are clear to auscultation bilaterally. Cardiovascular: Irregularly irregular rate and rhythm. Monitor shows atrial fibrillation with rapid ventricular response and rates in the low 100s. Gastrointestinal: Abdomen is soft, nontender, and nondistended with positive bowel sounds. Liver feels a bit enlarged. No guarding or rebound tenderness. Skin: Warm and dry. Extremities: No cyanosis or clubbing. Trace pretibial edema bilaterally. Radial and pedal pulses intact. Neurological: Alert. Cranial nerves 2-12 are grossly intact. No gross focal deficits to casual conversation. Psychiatric: Pleasant and cooperative with normal mood and affect. Judgment and insight intact. Objective Data Vital Signs Vital Signs: Vital Signs - 24 hr 03/04/23 13:37 03/04/23 14:00 03/04/23 16:34 Temperature 96.8 F L Pulse Rate 129 H 99 125 H Respiratory Rate 20 Blood Pressure 119/78 Pulse Oximetry 99 Oxygen Delivery 03/04/23 16:00 03/04/23 18:00 03/04/23 21:04 Temperature Pulse Rate 100 102 H 109 H Respiratory Rate Blood Pressure Pulse Oximetry Oxygen Delivery 03/04/23 20:00 03/04/23 20:00 03/04/23 20:00 Temperature 97.2 F L Pulse Rate 94 90 Respiratory Rate 18 Blood Pressure 156/94 H Pulse Oximetry 100 Oxygen Delivery Room Air 03/04/23 22:00 03/05/23 00:00 03/05/23 00:00 Temperature 97.6 F Pulse Rate 78 113 H Respiratory Rate 18 Blood Pressure 162/100 H Pulse Oximetry 100 Oxygen Delivery Room Air 03/05/23 00:00 03/05/23 02:00 03/05/23 04:00 Temperature Pulse Rate 99 113 H 122 H Respiratory Rate Blood Pressure Pulse Oximetry Oxygen Delivery 03/05/23 04:00 03/05/23 05:24 03/05/23 04:00 Temperature 98.0 F Pulse Rate 127 H 121 H Respiratory Rate 18 Blood Pressure 164/92 H Pulse Oximetry 96 Oxygen Delivery Room Air 03/05/23 06:00 03/05/23 05:00 03/05/23 08:21 Temperature 97.3 F L Pulse Rate 128 H 105 H 143 H Respiratory Rate 18 Blood Pressure 152/105 H Pulse Oximetry 100 Oxygen Delivery 03/05/23 08:00 03/05/23 08:00 03/05/23 10:00 Temperature Pulse Rate 107 H 122 H Respiratory Rate Blood Pressure Pulse Oximetry 100 Oxygen Delivery Room Air 03/05/23 11:54 03/05/23 12:00 Temperature 98.6 F Pulse Rate 127 H 128 H Respiratory Rate 18 Blood Pressure 156/128 H Pulse Oximetry 100 Oxygen Delivery Intake/Output Intake/Output: Intak
[2023-03-05 16:01] LABS: Glucose Point of Care 141 mg/dl (65-105)
[2023-03-05] MEDS: RIVAROXABAN 20 MG TABLET PO (17:15)
[2023-03-05 19:58] LABS: Glucose Point of Care 119 mg/dl (65-105)
[2023-03-05] MEDS: METOPROLOL TARTRATE 50 MG TAB 100 MG PO (21:28)
[2023-03-05] MEDS: PRAVASTATIN SODIUM 20 MG TABLET 80 MG PO (21:28)
[2023-03-06] VITALS (8 sets, daily range): BP systolic 147–168; BP diastolic 95–111; PULSE 67–127; RESP 18–20; TEMP 36.2–36.5; O2SAT 97–100
[2023-03-06] MEDS: IRBESARTAN 150 MG TABLET 300 MG PO (07:57)
[2023-03-06] MEDS: dilTIAZem HCL CD 180 MG CAP.24HR PO (07:57)
[2023-03-06] MEDS: MAGNESIUM OXIDE 400 MG TABLET PO (07:57)
[2023-03-06] MEDS: TAMSULOSIN HCL 0.4 MG CAPSULE PO (07:57)
[2023-03-06] MEDS: ASCORBIC ACID 500 MG TABLET PO (07:58)
[2023-03-06] MEDS: METOPROLOL TARTRATE 50 MG TAB 100 MG PO (07:58)
[2023-03-06] MEDS: PANTOPRAZOLE SOD SESQUIHYDRATE 20 MG TAB PO (07:58)
[2023-03-06 08:24] LABS: Glucose Point of Care 134 mg/dl (65-105)
--- NOTE | 2023-03-06 10:33 | PM.PNCARD ---
Progress Note: A&P Assessment and Plan (1) Atrial fibrillation with rapid ventricular response: Code(s): I48.91 - Unspecified atrial fibrillation Status: Acute Plan Atrial fibrillation his hemodynamic status is stable enough for discharge. I did advance the dosage of his diltiazem to 240 mg daily as he is a bit hypertensive for somewhat better rate control. He should continue on the metoprolol and anticoagulation as well. I will see the patient in follow-up in 3-4 weeks and plan DC cardioversion at that time. In my opinion he can be discharged at this time. Bradly Kee MD [facility] Subjective Date/time seen: Date of service: 03/06/23 10:33 Interval history: Cardiology follow up for atrial fibrillation Unfortunately went back into RVR overnight, HR 130's - 150's. He is asymptomatic. No complaints of any kind this morning. Date of service 03/05/2023: Patient is essentially asymptomatic and feels relatively well. Atrial fib heart rate is somewhat better control still at times has heart rate up to 120-130. When he is resting in bed heart rate is in the low 100s. Date of service 03/06/2023: Patient is asymptomatic ambulating the halls and feels well. Hoping to be discharged. Heart rate is better controlled with the addition of the diltiazem to the metoprolol. Blood pressure still mildly elevated Exam Const: General: comfortable, no acute distress, alert and awake Orientation/consciousness: patient oriented x3 HENMT: Head: normal to inspection Eyes: General: appearance normal, both eyes and all related structures Pupils: Equal, round and reactive pupils present Neck: Neck: normal visual inspection, supple and no JVD Carotids: normal carotid upstroke Resp: Effort & Inspection: normal respiratory effort Auscultation: clear to auscultation bilaterally Cardio: Rate: regular rate Rhythm: abnormal rhythm irregularly irregular Heart sounds: S1 normal heart sound present, S2 normal heart sound present and no murmurs GI: Auscultation: normal bowel sounds Skin: General skin exam: normal color Neuro: General: patient oriented x3 Cranial nerves: Yes Equal, round and reactive pupils present Extrem: General: normal to inspection Psych: Appearance: grossly normal Mental Status: mental status grossly normal Objective Data Vital Signs Vital Signs: Vital Signs - 24 hr 03/05/23 11:54 03/05/23 12:00 03/05/23 12:00 Temperature 37.0 C Pulse Rate 127 H 128 H Respiratory Rate 18 Blood Pressure 156/128 H Pulse Oximetry 100 100 Oxygen Delivery Room Air 03/05/23 14:00 03/05/23 16:02 03/05/23 16:00 Temperature 36.5 C Pulse Rate 101 H 112 H 116 H Respiratory Rate 20 Blood Pressure 166/107 H Pulse Oximetry 97 Oxygen Delivery 03/05/23 16:00 03/05/23 18:00 03/05/23 20:00 Temperature 36.4 C L Pulse Rate 106 H 117 H Respiratory Rate 20 Blood Pressure 157/94 H Pulse Oximetry 100 98 Oxygen Delivery Room Air 03/05/23 21:28 03/05/23 20:00 03/06/23 00:00 Temperature 36.4 C L Pulse Rate 125 H 117 H 67 Respiratory Rate 20 20 Blood Pressure 168/95 H Pulse Oximetry 98 100 Oxygen Delivery Room Air 03/05/23 20:00 03/05/23 22:00 03/05/23 23:23 Temperature Pulse Rate 142 H 120 H 67 Respiratory Rate 20 Blood Pressure Pulse Oximetry 100 Oxygen Delivery Room Air 03/06/23 00:00 03/06/23 02:00 03/06/23 04:00 Temperature Pulse Rate 83 85 82 Respiratory Rate Blood Pressure Pulse Oximetry Oxygen Delivery 03/06/23 04:00 03/06/23 04:00 03/06/23 06:00 Temperature 36.5 C Pulse Rate 102 H 102 H 105 H Respiratory Rate 20 20 Blood Pressure 150/100 H Pulse Oximetry 97 97 Oxygen Delivery Room Air 03/06/23 07:58 03/06/23 08:35 03/06/23 08:00 Temperature 36.2 C L Pulse Rate 108 H 127 H 103 H Respiratory Rate 18 Blood Pressure 147/111 H Pulse Oximetry 98 Oxygen Delivery 03/06/23 08:00 08
--- NOTE | 2023-03-06 10:38 | PM.DS ---
DS: Admitting Diagnosis Discharge Date 03/06/2023 Admitting Diagnosis AFib with RVR Hypertension DS: Discharge Diagnosis Discharge Diagnosis (1) Atrial fibrillation with rapid ventricular response: Code(s): I48.91 - Unspecified atrial fibrillation Status: Acute (2) Hypertension: Code(s): I10 - Essential (primary) hypertension Status: Acute (3) Liver mass: Code(s): R16.0 - Hepatomegaly, not elsewhere classified Status: Acute DS: Summary Hospital Course Hospital Course: This is a very pleasant 72-year-old male with hypertension, hyperlipidemia, prediabetes, benign prostatic hyperplasia, and gastroesophageal reflux disease who presented to the emergency department via private vehicle for evaluation of palpitations. Due to ongoing symptoms he came to the ER where he was found to be in atrial fibrillation with rapid ventricular response. Troponin was normal. TSH was a bit lowwith normal T3 and T4. He was started on a diltiazem drip and that has since been discontinued per Cardiology. He has since been started on metoprolol tartrate 25 mg q.8 hours and rivaroxaban for stroke prophylaxis. His heart rate and blood pressure reports uncontrolled some metoprolol dose was increased to 100 mg p.o. b.i.d. eventually. Cardizem was added and dose was increased to 240 mg daily by cardiology. Chest CT showed a 7.6 cm liver mass which may be benign or malignant. Liver MRI was obtained which showed a benign hemangioma. Patient is clinically stable and is being discharged home. Will follow up with Cardiology as outpatient for cardioversion. Time Spent with Patient Time attestation: Total time spent providing and/or coordinating discharge services: DS: Data Data Completed and Pending Labs on day of discharge: Labs from last 24 hours 03/06/23 03/05/23 03/05/23 07:53 19:54 15:45 POC Capillary Glucose 134 H 119 H 141 H 03/05/23 11:54 POC Capillary Glucose 196 H Discharge Plan Discharge Consulting providers: Donavon Palmer Discharging Clinician: Milad Perez Anticipated Discharge Date/Time: 03/06/23 10:36 Patient Disposition: Home, Self-Care Activity: no preference Diet: heart healthy Patient Instructions: Antibiotic Form Stand Alone Forms: General Discharge Information Follow-up/Referrals: Donavon Palmer MD [Physician] - Mark Mejía APRN [Primary Care Provider] - Discharge Medications: New diltiazem HCl 240 mg Capsule,Ext.Rel 24h Degradable 240 mg PO QAM Qty: 60 0RF Xarelto 20 mg Tablet 20 mg PO DAILY@1700 Qty: 30 0RF metoprolol tartrate 50 mg Tablet 100 mg PO Q12HR Qty: 60 0RF Continued (DME) Contour Test Strips Strip See Rx Instructions .ROUTE .MEDSUPPLY Qty: 100 4RF Rx Instructions: As directed once daily (DME) lancets [Lancets, Super Thin] Misc See Rx Instructions .ROUTE .MEDSUPPLY Qty: 100 3RF Rx Instructions: As directed once daily ascorbate calcium (vitamin C) 500 mg tablet 500 mg PO DAILY magnesium oxide 400 mg magnesium capsule 400 mg PO DAILY krill oil 500 mg capsule 500 mg PO DAILY irbesartan 300 mg tablet 300 mg PO DAILY Qty: 90 2RF pantoprazole 20 mg tablet,delayed release (DR/EC) 20 mg PO DAILY Qty: 90 1RF Rx Instructions: TAKE 1 TABLET BY MOUTH IN THE MORNING pravastatin 80 mg tablet 80 mg PO DAILY Qty: 90 1RF Rx Instructions: Take 1 tablet by mouth once daily tamsulosin 0.4 mg capsule 0.4 mg PO DAILY Qty: 90 1RF Rx Instructions: Take 1 capsule by mouth once daily metformin 500 mg tablet 500 mg PO DAILY Qty: 90 1RF Discontinued amlodipine 5 mg tablet 5 mg PO DAILY Qty: 90 1RF Rx Instructions: Take 1 tablet by mouth once daily metoprolol succinate 100 mg tablet extended release 24 hr 100 mg PO DAILY Qty: 90 1RF Date of admission: 03/04/23 13:38 Primary Care Provider: Ramana
[2023-03-10 12:41] LABS: Glucose Point of Care 177 mg/dl (65-105)
== END 2023-03-06 11:20 | disposition home or self-care (01) | DRG 310 ==
LOC: ANHED 10:56 → ANHIMU 11:25
PROVIDERS: Physician Assistant; Admitting Provider Hospitalist; Emergency Provider General Practice; PCP Nurse Practitioner; Visit Provider Hospitalist
DX: I48.91 Unspecified atrial fibrillation (principal); I10 Essential (primary) hypertension; R16.0 Hepatomegaly, not elsewhere classified; E78.5 Hyperlipidemia, unspecified; R73.03 Prediabetes; N40.0 Benign prostatic hyperplasia without lower urinary tract symptoms; K21.9 Gastro-esophageal reflux disease without esophagitis; G47.33 Obstructive sleep apnea (adult) (pediatric); D69.6 Thrombocytopenia, unspecified
CPT/HCPCS: 36415; 71045; 71250; 74183; 80053; 82948; 83690; 83735; 84439; 84443; 84480; 84484; 85025; 85027; 85610; 85730; 93005; 93306; 96365; 96366; 96372; 96375; 96376; 99285; A9270; A9577; G0378; J1650; J2060

== ENCOUNTER 2023-04-18 01:23 | Day surgery (SDC) | payer MEDICARE, SELFPAY ==
[2023-04-18] VITALS (8 sets, daily range): BP systolic 124–172; BP diastolic 82–137; PULSE 101–153; RESP 16–26; TEMP 36.6; O2SAT 95–99; BMI 28.7
[2023-04-18 08:54] LABS: Basophils Percent Auto 0.2 % (0.2-1.2); Eosinophils Percent Auto 0.4 % (0-4.4); Hematocrit 54.2 % (42.0-52.0); Hemoglobin 17.9 g/dL (14.0-18.0); Immature Granulocyte Absolute 0.01 K/mm3 (0.00-0.031); Immature Granulocyte Percent A 0.1 % (0-0.5); Lymphocytes Absolute Auto 1.89 K/mm3 (0.9-3.2); Lymphocytes Percent Auto 22.2 % (18.3-44.2); Mean Corpuscular Volume 90.8 fl (80-100); Mean Platelet Volume 10.3 fl (7.4-10.4); Monocytes Absolute Auto 0.4 K/mm3 (0.1-0.6); Monocytes Percent Auto 4.9 % (2.6-8.5); Neutrophils Absolute Auto 6.2 K/mm3 (1.3-6.7); Neutrophils Percent Auto 72.2 % (45.5-73.1); Platelet Count Result 165 k/mm3 (150-375); Red Blood Count 5.97 M/mm3 (4.6-6.20); Red Cell Distribution Width 13.7 % (11.5-14.5); White Blood Count 8.5 K/mm3 (4.5-10.0)
[2023-04-18 09:04] LABS: Anion Gap 10 mmol/L (8-16); Blood Urea Nitrogen 20 mg/dL (9-20); Calcium 9.6 mg/dL (8.4-10.2); Carbon Dioxide 26 mmol/L (22-30); Chloride 105 mmol/L (98-107); Estimated CRCL calculation 59 ml/min; Estimated Glomerular Filt Rate > 60; Glucose 152 mg/dL (65-110); Magnesium 1.9 mg/dL (1.6-2.3); Sodium 141 mmol/L (137-145)
--- NOTE | 2023-04-18 09:40 | WPDMODSED ---
Moderate Sedation Note-Pt Data Patient Data Diagnosis: Persistent atrial fibrillation of recent onset Present Complaint: Palpitation Procedure to be performed/Plan: DC cardioversion Allergies Allergy/AdvReac Type Severity Reaction Status Date / Time No Known Allergies Allergy Unknown Uncoded 04/18/23 08:44 Home Medications Medication Instructions Recorded Confirmed Type blood sugar diagnostic (Contour #100 ea 07/30/19 03/22/23 Rx Test Strips) lancets (Lancets, Super Thin) #100 ea 07/30/19 03/22/23 Rx ascorbate calcium (vitamin C) 500 500 mg PO DAILY 03/10/22 04/18/23 History mg tablet krill oil 500 mg capsule 500 mg PO DAILY 03/10/22 04/18/23 History irbesartan 300 mg tablet 300 mg PO DAILY #90 tabs 08/03/22 04/18/23 Rx metformin 500 mg tablet 500 mg PO DAILY #90 tabs 12/30/22 04/18/23 Rx diltiazem HCl 240 mg 240 mg PO QAM #60 caps 03/22/23 04/18/23 Rx capsule,extended release 24 hr, controlled rivaroxaban 20 mg tablet (Xarelto) 20 mg PO DAILY@1700 #90 tabs 03/22/23 04/18/23 Rx pantoprazole 20 mg tablet,delayed 20 mg PO DAILY #90 tabs 03/28/23 04/18/23 Rx release pravastatin 80 mg tablet 80 mg PO DAILY #90 tabs 03/28/23 04/18/23 Rx cholecalciferol (vitamin D3) 125 125 mcg PO DAILY 04/15/23 04/18/23 History mcg (5,000 unit) tablet (Vitamin D3) magnesium glycinate 200 mg PO DAILY 04/15/23 04/18/23 History tamsulosin 0.4 mg capsule 0.4 mg PO DAILY #90 caps 04/15/23 04/18/23 Rx vitamin E (dl, acetate) 400 unit 400 unit PO DAILY 04/15/23 04/18/23 History chewable tablet metoprolol tartrate 50 mg tablet 100 mg PO Q12HR #60 tabs 04/18/23 04/18/23 Rx Current Medications: Active Medications Sodium Chloride (Normal Saline Iv) 1,000 mls @ 30 mls/hr IV CONT .Q24H DHAVAL Sedation/Anesthesia: No previous sedation/anesthesia problems (including family history). PMFSH Past Medical History Medical History Benign prostatic hyperplasia Erectile dysfunction Gout Hyperlipidemia Hypertension Prediabetes Surgical History Surgical History History of inguinal hernia repair History of tonsillectomy History of umbilical hernia repair Status post excision of acoustic neuroma Family History Family History Father Heart disease Mother Heart disease Social History Social History Social History: Surrogate medical decision maker: Yuliana Juan, spouse. Code status: Full code. Smoking status: Never smoker Second hand tobacco smoke exposure: Yes Alcohol intake: current Drinks per week: 1 Alcohol use details: 1-2 drinks/month or less Substance use: never Substance use type: does not use Lack of Transportation: No Lack of Food: Never True Current Housing: I Have Housing Concerned About Future Housing: No Difficulty Paying Gas/Electric Bills: No Difficulty Paying for Meds: No Currently Unemployed: No Education: Trade/Vocational Certificate Difficulty w/ Childcare or Family Care: No Living arrangements: with family Spiritual care concerns: No Mod Sed Physical Exam Physical Exam Pre Procedural Exam: Normal: Neck, Throat, Airway, Lungs, Heart Size, Neuro Exam and Extremities and Variation: Appearance, Heart Rate (Tachycardic, irregularly irregular) and Heart Rhythm Hours since solid foods: 12 Hours since liquid intake: 12 Mallampati Classification: class II Internal Medicine - PN: Obj Da Vital Signs Vital Signs: Vital Signs - 24 hr 04/18/23 08:59 Temperature 36.6 C Pulse Rate 138 H Respiratory Rate 22 H Blood Pressure 166/116 H Pulse Oximetry 98 Oxygen Delivery Room Air Meds/Results Medications: Active Medications Generic Name Dose Route Start Last Admin Trade Name Freq PRN Reason Stop Dose Admin Sodium Chloride 1,000
--- NOTE | 2023-04-18 09:58 | WPDCARDPROC ---
Cardiac Cath Procedure Note Date of procedure:: 04/18/23 Performing physician:: Bradly Kee MD Indication:: Persistent atrial fibrillation Brief clinical history:: This is a 72-year-old man who was seen recently as an inpatient for atrial fibrillation felt to be of recent onset. He has longstanding hypertension and non insulin-dependent diabetes. He has been anticoagulated with Xarelto and rate controlled with metoprolol and diltiazem. An attempt at a restoring sinus rhythm electrically has been scheduled for this morning. Procedure Procedure performed:: DC cardioversion Sedation/Medication given:: IV propofol in aliquots total dosage of 80 mg Estimated blood loss:: 0 Procedure note:: Patient was brought to the cardiac catheterization lab holding area in the postabsorptive state. Defibrillator patches placed in the AP position an IV access was established in the right upper extremity. He was then sedated using propofol in aliquots as described above. He was counter shocked with 200 joules in a synchronized fashion which restored normal sinus rhythm unfortunately this only persisted for about 15 seconds. Findings:: As above Conclusion:: Unsuccessful but uncomplicated DC cardioversion of atrial fibrillation however unfortunately sinus rhythm only persisted for approximately 15 seconds reverting back to atrial fibrillation. Bradly Kee MD [facility]
--- NOTE | 2023-04-18 10:30 | ECG_ITS ---
Measurements Intervals [place] Rate: 126 P: [place]: 0 QRS: 12 QRSD: 103 T: 11 QT: 306 QTc: 444 Interpretive Statements ATRIAL FLUTTER WITH RAPID VENTRICULAR RESPONSE MINIMAL ST DEPRESSION [0.025+ mV ST DEPRESSION] ABNORMAL RHYTHM ECG COMPARED TO ECG 03/03/2023 08:31:13 NO DIFFERENT Electronically Signed On 04-18-2023 13:35:34 CDT by Bradly SHI
== END 2023-04-18 11:25 | disposition home or self-care (01) ==
PROVIDERS: PCP Nurse Practitioner; Visit Provider Specialist
PROC: 5A2204Z Restoration of Cardiac Rhythm, Single (ICD-10-PCS; principal; 2023-04-18 10:00)
DX: I48.19 Other persistent atrial fibrillation (principal); I10 Essential (primary) hypertension; E11.9 Type 2 diabetes mellitus without complications; E78.5 Hyperlipidemia, unspecified; M10.9 Gout, unspecified; N40.0 Benign prostatic hyperplasia without lower urinary tract symptoms; Z79.84 Long term (current) use of oral hypoglycemic drugs; Z79.01 Long term (current) use of anticoagulants
CPT/HCPCS: 36415; 80048; 83735; 85025; 92960; J2704; J7030

== ENCOUNTER → 2023-05-09 01:57 | Day surgery (SDC) | payer MEDICARE, SELFPAY ==
[2023-05-06 14:08] VITALS: BMI 29.9
--- NOTE | 2023-05-09 07:00 | ECG_ITS ---
Measurements Intervals [place] Rate: 83 P: 56 CT: 214 QRS: 5 QRSD: 104 T: 25 QT: 403 QTc: 475 Interpretive Statements SINUS RHYTHM WITH FIRST DEGREE AV BLOCK WITH FREQUENT SUPRAVENTRICULAR PREMATURE COMPLEXES BORDERLINE ECG COMPARED TO ECG 04/18/2023 08:43:37 SINUS RHYTHM REPLACES ATRIAL FIBRILLATION Electronically Signed On 05-09-2023 14:49:15 CDT by Bradly Kee M.D.
== END | disposition home or self-care (01) ==
PROVIDERS: PCP Nurse Practitioner; Visit Provider Specialist
PROC: 5A2204Z Restoration of Cardiac Rhythm, Single (ICD-10-PCS; principal; 2023-05-09 08:30)
DX: I48.91 Unspecified atrial fibrillation (principal); Z53.8 Procedure and treatment not carried out for other reasons
CPT/HCPCS: 99211; G0463

== ENCOUNTER 2024-02-03 22:09 | Emergency (ER) | payer MEDICARE, SELFPAY ==
[2024-02-03 22:23] VITALS: BP 219/121; PULSE 94; RESP 20; TEMP 36.3; O2SAT 98
[2024-02-04 00:18] VITALS: BP 207/97; PULSE 93; RESP 16; O2SAT 98
[2024-02-04 04:21] VITALS: BP 179/110
[2024-02-04 05:22] VITALS: PULSE 91; RESP 16
[2024-02-04 05:30] VITALS: PULSE 89; RESP 12; O2SAT 96
[2024-02-04 05:31] VITALS: BP 177/120; PULSE 91; RESP 18; O2SAT 97
--- NOTE | 2024-02-04 05:32 | ED.GENADULT ---
HPI - General Adult General Chief complaint: Recheck/Abnormal Lab/Rx Stated complaint: htn Time Seen by Provider: 02/04/24 03:59 History of Present Illness HPI narrative: This is a 73-year-old male with history of hypertension presenting with elevated blood pressure. Patient checks blood pressure is elevated 180/110. He has asymptomatic without chest pain difficulty breathing,neurologic deficits or any other complaints. He has follow-up with Dr. Melendrez who manages his blood pressure on . Related Data Home Medications Medication Instructions Recorded Confirmed ascorbate calcium (vitamin C) 500 500 mg PO DAILY 03/10/22 07/26/23 mg tablet krill oil 500 mg capsule 500 mg PO DAILY 03/10/22 07/26/23 cholecalciferol (vitamin D3) 125 125 mcg PO DAILY 04/15/23 07/26/23 mcg (5,000 unit) tablet (Vitamin D3) vitamin E (dl, acetate) 400 unit 400 unit PO DAILY 04/15/23 07/26/23 chewable tablet magnesium glycinate 200 mg PO DAILY 02/02/24 Allergies Allergy/AdvReac Type Severity Reaction Status Date / Time No Known Allergies Allergy Verified 02/04/24 03:48 [facility] Past Medical History Medical History Benign prostatic hyperplasia Erectile dysfunction Gout Hyperlipidemia Hypertension Prediabetes Surgical History Surgical History History of inguinal hernia repair History of tonsillectomy History of umbilical hernia repair Status post excision of acoustic neuroma Family History Family History Father Heart disease Mother Heart disease Social History Social History Social History: Surrogate medical decision maker: Yuliana Rcpe, spouse. Code status: Full code. Smoking status: Never smoker Second hand tobacco smoke exposure: Yes Alcohol intake: never Drinks per week: 1 Alcohol use details: 1-2 drinks/month or less Substance use: never Substance use type: does not use Lack of Transportation: No Lack of Food: Never True Current Housing: I Have Housing Concerned About Future Housing: No Difficulty Paying Gas/Electric Bills: No Difficulty Paying for Meds: No Currently Unemployed: No Education: Trade/Vocational Certificate Difficulty w/ Childcare or Family Care: No Living arrangements: with family Spiritual care concerns: No Exam Narrative: APPEARANCE: No apparent distress. Head: atraumatic. EYES: EOMI, NOSE: Atraumatic NECK: Trachea midline RESPIRATORY: No increased rate of breathing clear to auscultation CARDIOVASCULAR: RRR, no peripheral edema ABDOMINAL: Non-distended soft nontender MUSCULOSKELETAl: No obvious deformities NEURO: Alert. Cranial nerves 2-12 grossly intact. Sensation light touch, motor function cerebellar function intact for 4 extremities. Gait exam was normal. SKIN:: Warm, dry. Normal color PSYCHIATRIC: Normal affect Course Vital Signs Vital signs: Vital Signs Temperature 97.4 F L 02/03/24 22:23 Pulse Rate 94 02/03/24 22:23 Respiratory Rate 20 02/03/24 22:23 Blood Pressure 219/121 H 02/03/24 22:23 Pulse Oximetry 98 02/03/24 22:23 Oxygen Delivery Room Air 02/03/24 22:23 Temperature 97.4 F L 02/03/24 22:23 Pulse Rate 93 02/04/24 00:18 Respiratory Rate 16 02/04/24 00:18 Blood Pressure 179/110 H 02/04/24 04:21 Pulse Oximetry 98 02/04/24 00:18 Oxygen Delivery Room Air 02/03/24 22:23 Medical Decision Making MDM Narrative Medical decision making narrative: -Course: 73-year-old male presenting with asymptomatic hypertension. 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 Patient has been instructed to follow-up at his scheduled appointment and return if you develop chest pain difficulty breathing neurologic deficits would like re-evalua
[2024-02-04 05:43] VITALS: BP 177/120; PULSE 89; RESP 17; O2SAT 98
== END 2024-02-04 05:44 | disposition home or self-care (01) ==
PROVIDERS: Emergency Provider Emergency Medicine; PCP Nurse Practitioner
DX: I10 Essential (primary) hypertension (principal); E78.5 Hyperlipidemia, unspecified
CPT/HCPCS: 99281

== ENCOUNTER 2024-04-23 01:24 | Day surgery (SDC) | payer MEDICARE, SELFPAY ==
[2024-03-29 14:30] VITALS: BMI 28.7
--- NOTE | 2024-04-11 12:27 | PC.NURSE ---
Spoke with patient regarding medication XARELTO. Pt. verbalizes understanding that the last dose of XARETLO is to be taken on 04/19/2024 and the Endoscopist will instruct them when to restart after the procedure.
[2024-04-23 06:43] VITALS: BP 183/100; PULSE 84; RESP 18; TEMP 36.4; O2SAT 99; BMI 27.9
[2024-04-23] MEDS: LACTATED RINGERS 1,000 ML 150 ML IV CONT (07:05)
[2024-04-23 07:08] LABS: Glucose Point of Care 132 mg/dl (65-105)
--- NOTE | 2024-04-23 07:36 | WPDANESEPPF ---
Anes - Initial Pre Proc Eval Procedure: Operation Date: 04/23/24 08:00 Proposed Procedures p Screening Colonoscopy - Corby Feldman MD Date/Time: 04/23/24 07:36 Surgeon: Corby Feldman MD Pre Op Diagnosis: hx of colonic polyps Patient Data Age: 73 Gender: M Height: 1.83 m Weight: 93.4 kg Last Vital Signs Temp 36.4 C 04/23/24 06:43 Pulse 84 04/23/24 06:43 Resp 18 04/23/24 06:43 BP 183/100 H 04/23/24 06:43 Pulse Ox 99 04/23/24 06:43 O2 Del Method Room Air 04/23/24 06:43 Allergies Allergy/AdvReac Type Severity Reaction Status Date / Time No Known Allergies Allergy Verified 04/23/24 06:51 Home Medications Medication Instructions Recorded Confirmed Type blood sugar diagnostic (Contour #100 ea 07/30/19 04/23/24 Rx Test Strips) lancets (Lancets, Super Thin) #100 ea 07/30/19 04/23/24 Rx ascorbate calcium (vitamin C) 500 500 mg PO DAILY 03/10/22 04/23/24 History mg tablet krill oil 500 mg capsule 500 mg PO DAILY 03/10/22 04/23/24 History cholecalciferol (vitamin D3) 125 125 mcg PO DAILY 04/15/23 04/23/24 History mcg (5,000 unit) tablet (Vitamin D3) sotalol 80 mg tablet 80 mg PO Q12HR #60 tabs 04/18/23 04/23/24 Rx tamsulosin 0.4 mg capsule 0.4 mg PO DAILY #90 caps 11/21/23 04/23/24 Rx rivaroxaban 20 mg tablet (Xarelto) See Rx Instructions .Route 12/07/23 04/23/24 Rx .COMPLEX #90 tabs irbesartan 300 mg tablet 300 mg PO DAILY #90 tabs 12/30/23 04/23/24 Rx magnesium glycinate 200 mg PO DAILY 02/02/24 04/23/24 History pravastatin 80 mg tablet See Rx Instructions .Route 02/16/24 04/23/24 Rx .COMPLEX #90 tabs pantoprazole 20 mg tablet,delayed 20 mg PO DAILY #90 tabs 03/07/24 04/23/24 Rx release metformin 500 mg tablet 500 mg PO DAILY #90 tabs 03/09/24 04/23/24 Rx amlodipine 10 mg tablet 10 mg PO DAILY 03/29/24 04/23/24 History Laboratory Tests 04/23/24 07:00 POC Capillary Glucose 132 H mg/dl (65-105) Patient hx anesthesia problems: none Family hx anesthesia problems: none Results Review: All pre-operative results and documents have been reviewed as part of the pre-operative evaluation. [facility], LAT[facility] Past Medical History Medical History Benign prostatic hyperplasia Erectile dysfunction Gout Hyperlipidemia Hypertension Prediabetes Surgical History Surgical History History of inguinal hernia repair History of tonsillectomy History of umbilical hernia repair Status post excision of acoustic neuroma Family History Family History Father Heart disease Mother Heart disease Social History Social History Social History: Surrogate medical decision maker: Yuliana Martinez, spouse. Code status: Full code. Smoking status: Never smoker Second hand tobacco smoke exposure: Yes Alcohol intake: never Drinks per week: 1 Alcohol use details: 1-2 drinks/month or less Substance use: never Substance use type: does not use Lack of Transportation: No Lack of Food: Never True Current Housing: I Have Housing Concerned About Future Housing: No Difficulty Paying Gas/Electric Bills: No Difficulty Paying for Meds: No Currently Unemployed: No Education: Trade/Vocational Certificate Difficulty w/ Childcare or Family Care: No Living arrangements: with family Spiritual care concerns: No Anes - Eval Final PreProcedure Day of Procedure 04/23/24 07:36 Patient weight: overweight Heart: regular rate and rhythm Lungs: clear to auscultation Airway: Mallampati scale class II Neurological: alert and oriented Last oral intake: >/= 8 hours ASA classification: III Emergent: no Anesthetic plan: proceed Anesthesia type and monitoring: general GIVS and standard monitoring Results Review: All pre-operative res
--- NOTE | 2024-04-23 08:00 | PM.IMHP ---
H&P: HPI History of Present Illness Date/Time: 04/23/24 08:00 Chief Complaint: History of colonic polyps Narrative: The patient has a history of colonic polyps. He is here for surveillance colonoscopy. Review of Systems Review of Systems: All systems reviewed & are unremarkable except as noted in HPI and below PMFSH Past Medical History Medical History Benign prostatic hyperplasia Erectile dysfunction Gout Hyperlipidemia Hypertension Prediabetes Surgical History Surgical History History of inguinal hernia repair History of tonsillectomy History of umbilical hernia repair Status post excision of acoustic neuroma Family History Family History Father Heart disease Mother Heart disease Social History Social History Social History: Surrogate medical decision maker: Yuliana Juan, spouse. Code status: Full code. Smoking status: Never smoker Second hand tobacco smoke exposure: Yes Alcohol intake: never Drinks per week: 1 Alcohol use details: 1-2 drinks/month or less Substance use: never Substance use type: does not use Lack of Transportation: No Lack of Food: Never True Current Housing: I Have Housing Concerned About Future Housing: No Difficulty Paying Gas/Electric Bills: No Difficulty Paying for Meds: No Currently Unemployed: No Education: Trade/Vocational Certificate Difficulty w/ Childcare or Family Care: No Living arrangements: with family Spiritual care concerns: No Meds Home Medications and Allergies Home Medications Medication Instructions Recorded Confirmed Type blood sugar diagnostic (Contour #100 ea 07/30/19 04/23/24 Rx Test Strips) lancets (Lancets, Super Thin) #100 ea 07/30/19 04/23/24 Rx ascorbate calcium (vitamin C) 500 500 mg PO DAILY 03/10/22 04/23/24 History mg tablet krill oil 500 mg capsule 500 mg PO DAILY 03/10/22 04/23/24 History cholecalciferol (vitamin D3) 125 125 mcg PO DAILY 04/15/23 04/23/24 History mcg (5,000 unit) tablet (Vitamin D3) sotalol 80 mg tablet 80 mg PO Q12HR #60 tabs 04/18/23 04/23/24 Rx tamsulosin 0.4 mg capsule 0.4 mg PO DAILY #90 caps 11/21/23 04/23/24 Rx rivaroxaban 20 mg tablet (Xarelto) See Rx Instructions .Route 12/07/23 04/23/24 Rx .COMPLEX #90 tabs irbesartan 300 mg tablet 300 mg PO DAILY #90 tabs 12/30/23 04/23/24 Rx magnesium glycinate 200 mg PO DAILY 02/02/24 04/23/24 History pravastatin 80 mg tablet See Rx Instructions .Route 02/16/24 04/23/24 Rx .COMPLEX #90 tabs pantoprazole 20 mg tablet,delayed 20 mg PO DAILY #90 tabs 03/07/24 04/23/24 Rx release metformin 500 mg tablet 500 mg PO DAILY #90 tabs 03/09/24 04/23/24 Rx amlodipine 10 mg tablet 10 mg PO DAILY 03/29/24 04/23/24 History Allergies Allergy/AdvReac Type Severity Reaction Status Date / Time No Known Allergies Allergy Verified 04/23/24 06:51 Vital Signs Vital Signs - 24 hr 04/23/24 06:43 Temperature 97.6 F Pulse Rate 84 Respiratory Rate 18 Blood Pressure 183/100 H Pulse Oximetry 99 Oxygen Delivery Room Air Assessment and Plan Assessment and plan (1) History of colon polyps: Code(s): Z86.010 - Personal history of colon polyps Status: Acute Plan Patient is deemed good candidate for colonoscopy. Will proceed.
[2024-04-23] MEDS: SIMETHICONE ORAL SUSPENSION 20 MG/0.3 ML 30 ML BOTTLE 0.6 ML IRRIGATION (08:11)
[2024-04-23 08:23] VITALS: BP 103/65; PULSE 67; RESP 17; O2SAT 91
[2024-04-23 08:33] VITALS: BP 100/61; PULSE 63; RESP 16; O2SAT 100
[2024-04-23 08:46] LABS: Glucose Point of Care 119 mg/dl (65-105)
[2024-04-23 08:50] VITALS: BP 106/64; PULSE 62; RESP 16; O2SAT 100
== END 2024-04-23 09:01 | disposition home or self-care (01) ==
PROVIDERS: PCP Nurse Practitioner; Referring Provider Nurse Practitioner; Visit Provider Internal Medicine Gastroenterology
PROC: 0DJD8ZZ Inspection of Lower Intestinal Tract, Via Natural or Artificial Opening Endoscopic (ICD-10-PCS; CPT 45378; principal; 2024-04-23 08:00)
DX: Z12.11 Encounter for screening for malignant neoplasm of colon (principal); K64.1 Second degree hemorrhoids; K57.30 Diverticulosis of large intestine without perforation or abscess without bleeding; I10 Essential (primary) hypertension; E78.5 Hyperlipidemia, unspecified; R73.03 Prediabetes; N40.0 Benign prostatic hyperplasia without lower urinary tract symptoms; N52.9 Male erectile dysfunction, unspecified; Z79.01 Long term (current) use of anticoagulants; Z79.84 Long term (current) use of oral hypoglycemic drugs; Z98.890 Other specified postprocedural states; Z86.0100 Personal history of colon polyps, unspecified; Z82.49 Family history of ischemic heart disease and other diseases of the circulatory system
CPT/HCPCS: G0105; 82948; J2003; J2371; J2704; J7120